=== PATIENT | female | born 1965 | race Caucasian/White ===

== ENCOUNTER 2017-04-07 13:35 | Emergency (ER) ==
[2017-04-07 13:42] VITALS: BP 146/97; TEMP 99.7; BMI 32.8
[2017-04-07] MEDS ORDERED: DECADRON 4 MG/ML SDV IM STA (14:07)
[2017-04-07] MEDS ORDERED: DUONEB NEB STA (14:07)
[2017-04-07 14:20] LABS: BASOPHILS % (AUTO) 0.4 % (0.0-3.0); EOSINOPHILS # (AUTO) 0.1 K/ul (0.0-0.7); EOSINOPHILS % (AUTO) 1.1 % (0.0-7.0); HEMATOCRIT 43.5 % (37.0-47.0); HEMOGLOBIN 15.3 g/dl (12.0-16.0); IMMATURE GRANULOCYTE % (AUTO) 0.3 % (0.0-5.0); LYMPHOCYTES # (AUTO) 2.6 K/uL (0.60-3.4); LYMPHOCYTES % (AUTO) 33.9 (10.0-50.0); MEAN CORPUSCULAR HEMOGLOBIN 31.7 pg (27.0-31.0); MEAN CORPUSCULAR HGB CONC 35.2 (31.8-35.4); MEAN CORPUSCULAR VOLUME 90.1 fl (81.0-99.0); MONOCYTES # (AUTO) 0.3 K/uL (0.4-2.0); MONOCYTES % (AUTO) 4.4 (0-10); NEUTROPHILS # (AUTO) 4.5 K/ul (2.0-6.9); NEUTROPHILS % (AUTO) 59.9; PLATELET COUNT 217 10^3/uL (140-440); RED BLOOD COUNT 4.83 10^6/ul (4.20-5.40); WHITE BLOOD COUNT 7.55 K/ul (4.6-10.2)
[2017-04-07 14:33] LABS: ABG BASE EXCESS 7 (-2.0-2.0); ABG HCO3 30.8 (22.0-26.0); ABG PCO2 40.9 mmHg (35-45); ABG PH 7.484 (7.35-7.45); ABG TCO2 32 (22.0-28.0)
[2017-04-07 14:37] LABS: ALBUMIN 3.7 g/dL (3.4-5.0); ALBUMIN/GLOBULIN RATIO 1.06; ANION GAP 15.4; BILIRUBIN,TOTAL 0.38 mg/dL (0.00-1.20); BUN/CREATININE RATIO 16.66; CALCIUM 9.4 mg/dL (8.2-10.2); CREATININE 0.84 mg/dL (0.60-1.30); POTASSIUM 3.4 mmol/L (3.5-5.10); TOTAL PROTEIN 7.2 g/dL (6.4-8.2)
--- NOTE | 2017-04-07 15:13 | DI ---
EXAM: CHEST FRONTAL AND LATERAL VIEWS HISTORY: Cough. COMPARISON: 10/18/2014 FINDINGS: Heart size and mediastinal contour remain within normal limits. No acute infiltrates. Normal vascularity with no pleural fluid or pneumothorax. The bony thorax has no acute finding. IMPRESSION: No acute process.
--- NOTE | 2017-04-07 15:52 | ED.PDOC ---
General ED Provider: Dr. PATRICIA DUPONT Chief Complaint: Shortness of Air Stated Complaint: short of air Time Seen by Physician: 13:40 Mode of Arrival: Walk-In Information Source: Patient Exam Limitations: No limitations [facility] Nursing and Triage Documentation Reviewed and Agree: Yes Respiratory Complaint Exam - Respiratory Complaint/Exam Symptoms Are: Still present, Resolved Timing: Intermittent Initial Severity: Mild Current Severity: None Location: Chest Character: Reports: Non-productive cough Aggravating: Reports: None Alleviating: Reports: None Associated Signs and Symptoms: Denies: Rapid breathing, Dyspnea, Fever, Chills, Chest pain, Pleuritic chest pain, Wheezing, Hemoptysis, Dizziness, Calf pain, Calf swelling, Edema, URI, Nasal congestion, Hoarseness, Sinus discomfort, Vomiting, Sore throat, Weight loss, Decreased oral intake, Increased thirst, Increased appetite, Increased urination Related History: Reports: Similar episode History of Healthcare-Acquired Pneumonia: No Related Surgical History: Reports: None Pulmonary Embolism Risk Factors: Smoking Cardiac Risk Factors: Reports: Smoking Pseudomonas Risk Factors: Reports: None Tuberculosis Risk Factors: Reports: None Status Asthmaticus Risk Factors: Reports: None Home Oxygen Use: No Recent Stress Test: No Recent Echo/LV Function: No Current Antibiotic Use: No Current Asthma Medication Use: No Respiratory Distress: None Inadequate Respiratory Effort: No Dysphagia Present: No Stridor Present: No JVD Present: No Accessory Muscle Use: No Review of Systems - Review Of Systems Constitutional: Reports: No symptoms Eyes: Reports: No symptoms Ears, Nose, Mouth, Throat: Reports: No symptoms Respiratory: Reports: Cough, Short of air Cardiac: Reports: No symptoms GI: Reports: No symptoms : Reports: No symptoms Musculoskeletal: Reports: No symptoms Skin: Reports: No symptoms Neurological: Reports: No symptoms Endocrine: Reports: No symptoms Hematologic/Lymphatic: Reports: No symptoms All Other Systems: Reviewed and Negative Past Medical History - Past Medical History Previously Healthy: Yes Endocrine: Reports: None Cardiovascular: Reports: Hypertension Respiratory: Reports: COPD, Asthma Hematological: Reports: Other (RHEUMATOID ARTHRITIS) Gastrointestinal: Reports: None Genitourinary: Reports: None Neuro/Psych: Reports: Bipolar Disorder Musculoskeletal: Reports: Arthritis Cancer: Reports: None Last Menstrual Period: menopause - Surgical History General Surgical History: Reports: Tubal ligation - Family History Family History: Reports: Unknown - Social History Smoking Status: Current every day smoker, Light tobacco smoker Hx Substance Use: Yes (MAY SMOKE A LITTLE) Alcohol Screening: None Physical Exam - Physical Exam Appearance: Well-appearing, No pain distress, Well-nourished Eyes: BLAS, EOMI, Conjunctiva clear ENT: Ears normal, Nose normal, Oropharynx normal Respiratory: Airway patent, Breath sounds clear, Breath sounds equal, Respirations nonlabored Cardiovascular: RRR, Pulses normal, No rub, No murmur GI/: Soft, Nontender, No masses, Bowel sounds normal, No Organomegaly Musculoskeletal: Normal strength, ROM intact, No edema, No calf tenderness Skin: Warm, Dry, Normal color Neurological: Sensation intact, Motor intact, Reflexes intact, Cranial nerves intact, Alert, Oriented Psychiatric: Affect appropriate, Mood appropriate Interpretation - Radiology Interpretation Radiology Interpretation By: Radiologist Radiology Results: No acute changes Critical Care Note - Critical Care Note Total Time (mins): 0 Course - Course Hematology/Chemistry: 04/07/17 14:10 04/07/17 14:10 Orders, Labs, Meds: Lab Review 04/07/17 04/07/17 14:10 14:30 WBC 7.55 RBC 4.83 Hgb 15.3 Hct 43.5 MCV 90.1 MCH 31.7 H MCHC 35.2 RDW Coeff of [place] 12.3 Plt Count 217 Immature Gran % (Auto) 0.3 Neut % (Auto) 59.9 Lymph % (Auto) 33.9 [place] % (Auto) 4.4 Eos % (Auto) 1.1 Baso % (Auto) 0.4 Immature Gran # (Auto) 0.0 Neut # 4.5 Lymph # 2.6 [place] # 0.3 L Eos # 0.1 Baso # 0.0 Puncture Site Rradial O2 Saturation 93.0 L ABG pH 7.484 H ABG pCO2 40.9 ABG pO2 63.0 L ABG HCO3 30.8 H ABG Total CO2 32 H ABG Base Excess 7 H David Test + FiO2 % 21.0 Sodium 141 Potassium 3.4 L Chloride 101 Carbon Dioxide 28 Anion Gap 15.4 BUN 14 Creatinine 0.84 Estimated GFR (MDRD) 71.00 BUN/Creatinine Ratio 16.66 Glucose 102 Calcium 9.4 Total Bilirubin 0.38 AST 19 ALT 23 Alkaline Phosphatase 116 H Total Protein 7.2 Albumin 3.7 Globulin 3.5 Albumin/Globulin Ratio 1.06 Orders Category Date Time Status ABG DRAW REQUEST Stat CARDIO 04/07/17 14:07 Completed EKG-(ED ONLY) Stat CARDIO 04/07/17 14:07 Completed NEBULIZER TREATMENT Stat CARDIO 04/07/17 14:08 Completed ABG Stat LAB 04/07/17 14:30 Completed CBC W/ AUTO DIFF Stat LAB 04/07/17 14:10 Completed COMPREHENSIVE METABOLIC PANEL Stat LAB 04/07/17 14:10 Completed Dexamethasone 4 mg/ml Inj [Decadron 4 mg/ml Sdv] MEDS 04/07/17 14:07 Discontinued 4 mg IM ONCE STA Ipratropium/Albuterol Neb [Duoneb] MEDS 04/07/17 14:07 Discontinued 1 vial NEB ONCE STA CHEST, 2 VIEWS PA & LAT Stat RADS 04/07/17 14:06 Completed Medications Discontinued Medications Generic Name Dose Route Start Last Admin Trade Name Freq PRN Reason Stop Dose Admin Albuterol/Ipratropium 1 vial 04/07/17 14:07 04/07/17 14:40 Duoneb NEB 04/07/17 14:08 1 vial ONCE STA Administration Dexamethasone Sodium Phosphate 4 mg 04/07/17 14:07 04/07/17 14:31 Decadron 4 Mg/Ml Sdv IM 04/07/17 14:08 4 mg ONCE STA Administration Vital Signs: Temp Pulse Resp BP Pulse Ox 04/07/17 13:36 99.7 F H 106 H 20 146/97 H 96 Departure - Departure Time of Disposition: 15:51 Disposition: HOME SELF-CARE Discharge Problem: COPD exacerbation Instructions: COPD (Chronic Obstructive Pulmonary Disease) (ED), Chronic Bronchitis (ED), How Your Lungs Work (ED), Nutrition Guidelines for People with COPD (ED) Condition: Good Pt referred to PMD for follow-up: Yes Additional Instructions: Please call your Family Physician as soon as possible to schedule a follow-up appointment. Allergies/Adverse Reactions: Allergies sulfamethoxazole [From Bactrim] Allergy (Severe, Verified 04/07/17 13:44) Hives trimethoprim [From Bactrim] Allergy (Severe, Verified 04/07/17 13:44) Hives amoxicillin [Amoxicillin] Allergy (Intermediate, Verified 04/07/17 13:44) Hives Penicillins Allergy (Intermediate, Verified 04/07/17 13:44) Hives codeine Allergy (Mild, Verified 04/07/17 13:44) Nausea lisinopril Allergy (Verified 04/07/17 13:44) slurred speech, stumbling antibiotics Adverse Reaction (Uncoded 10/18/14 09:59) Home Medications: Ambulatory Orders Albuterol Sulfate [Proair Hfa] 2 puff IH Q4H 04/07/17 Hydrochlorothiazide 25 mg PO DAILY 04/07/17
== END 2017-04-07 16:03 | disposition home or self-care (01) ==
LOC: ED 13:35
DX: J44.1 Chronic obstructive pulmonary disease with (acute) exacerbation (principal); F17.210 Nicotine dependence, cigarettes, uncomplicated
CPT/HCPCS: 36415; 80053; 82803; 85025; 93005; 93010; 94640; 96372; 99283

== ENCOUNTER 2017-11-17 15:20 | Outpatient (CLI) | END 2017-11-17 15:21 | disposition home or self-care (01) | LOC: RHC-LAB 15:20 | PROVIDERS: ATTEND Emergency Medicine | DX: F32.9 Major depressive disorder, single episode, unspecified (principal); I10 Essential (primary) hypertension; R51 Headache; E66.9 Obesity, unspecified | CPT/HCPCS: 36415; 80053; 80061; 82306; 84443; 85025 ==

== ENCOUNTER 2017-11-30 08:55 | Outpatient (CLI) ==
--- NOTE | 2017-11-30 10:11 | DEXA ---
EXAM: DEXA bone mineral density study HISTORY: Vitamin D deficiency DEXA scan lumbar spine performed. Quality of the study is good. Total lumbar BMD is 1.125 grams per square centimeter. T-score -0.5 w and Z-score -0.9. DEXA scan bilateral hips performed. Quality of the study is good. BMD total right 1.039, left 0.966 grams per square centimeter. T-score 0.3, -0.3 and Z-score 0.1, -0.5 . OPINION: BMD - T-score values considered normal by WHO classification. Fracture risk is not increas ed The ten year probablility for major osteoporotic fracture and hip fracture is 6.0% and 0.6% respectiv janki based on WHO fracture risk assessment tool (FRAX).
== END 2017-11-30 08:56 | disposition home or self-care (01) ==
LOC: RAD 08:55
PROVIDERS: ATTEND Emergency Medicine
DX: E87.6 Hypokalemia (principal); I10 Essential (primary) hypertension; E55.9 Vitamin D deficiency, unspecified; N95.9 Unspecified menopausal and perimenopausal disorder
CPT/HCPCS: 36415; 80053

== ENCOUNTER 2017-12-15 10:52 | Outpatient (CLI) ==
--- NOTE | 2017-12-15 11:47 | MAMMO ---
EXAM: Bilateral digital screening mammogram (2-D and 3-D) History: Screening Comparison: Bilateral mammogram 02/01/2014 Findings: MLO and CC views of bilateral breasts demonstrate predominately fatty replaced breast pare nchyma. CAD was reviewed by the radiologist. Tomosynthesis was performed. There are no dominant ma sses, no suspicious microcalcifications and no architectural distortions Impression: Stable negative mammogram. Recommend followup routine screening mammography in 1 year. BIRADS 1
== END 2017-12-15 10:53 | disposition home or self-care (01) ==
LOC: RAD 10:52
PROVIDERS: ATTEND Emergency Medicine
DX: Z12.31 Encounter for screening mammogram for malignant neoplasm of breast (principal)
CPT/HCPCS: 77067

== ENCOUNTER 2018-04-05 12:15 | Outpatient (CLI) | END 2018-04-05 12:16 | disposition home or self-care (01) | LOC: RHC-LAB 12:15 | PROVIDERS: ATTEND Emergency Medicine | DX: F32.9 Major depressive disorder, single episode, unspecified (principal); I10 Essential (primary) hypertension; J44.9 Chronic obstructive pulmonary disease, unspecified; M47.816 Spondylosis without myelopathy or radiculopathy, lumbar region; E66.9 Obesity, unspecified | CPT/HCPCS: 36415; 80053; 80061; 84443; 85025 ==

== ENCOUNTER 2019-01-13 11:30 | Emergency (ER) ==
[2019-01-13 11:34] VITALS: BP 168/97; TEMP 97.5; BMI 35.0
--- NOTE | 2019-01-13 12:02 | ED.PDOC ---
General ED Provider: Dr. JERMAINE CURRY Chief Complaint: Eye Problem Stated Complaint: scratched r eye during sleep ba a cat. 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 Time Seen by Physician: 11:45 Mode of Arrival: Walk-In Information Source: Patient Exam Limitations: No limitations Nursing and Triage Documentation Reviewed and Agree: Yes Does patient meet sepsis criteria?: No System Inflammatory Response Syndrome: Not Applicable Sepsis Protocol: For patient's 13 years and over: Temp is 96.8 and below OR 101 and greater Pulse >90 BPM Resp >20/minute Acutely Altered Mental Status Are patient's symptoms suggestive of a new infection, such as: -Pneumonia -Skin, Soft Tissue -Endocarditis -UTI -Bone, Joint Infection -Implantable Device -Acute Abdominal Infection -Wound Infection -Meningitis -Blood Stream Catheter Infection -Unknown EENT Complaint Exam - Eye Complaint/Exam Onset/Duration: tonight Symptoms Are: Still present Timing: Constant Initial Severity: Mild Current Severity: Mild Location: Right Character: Reports: Foreign body sensation Aggravating: Reports: None Alleviating: Reports: Eye drops Associated Signs and Symptoms: Reports: Clear drainage Eye Surgical History: Reports: None Penetrating Injury Risk Factors: None Globe Rupture Risk Factors: None Acute Glaucoma Risk Factors: None Optic Artery Occlusion Risk Factors: None Visual Acuity Right Eye: 20/20 Visual Acuity Left Eye: 20/15 Visual Field: Normal Extraocular Movement: Normal Orbit Findings: Normal Globe Findings: Intact Lid Findings: Erythema Conjunctival Findings: Exudate Corneal Findings: Clear Fluorescein Uptake: Yes Fundi: Normal Slit Lamp Used: No (not available) Differential Diagnoses: Corneal Abrasion Review of Systems - Review Of Systems Constitutional: Reports: No symptoms Eyes: Reports: Foreign body sensation Ears, Nose, Mouth, Throat: Reports: No symptoms Respiratory: Reports: No symptoms Cardiac: Reports: Lightheadedness GI: Reports: No symptoms : Reports: No symptoms Musculoskeletal: Reports: No symptoms Skin: Reports: No symptoms Neurological: Reports: No symptoms Endocrine: Reports: No symptoms Hematologic/Lymphatic: Reports: No symptoms All Other Systems: Reviewed and Negative Past Medical History - Past Medical History Previously Healthy: Yes Endocrine: Reports: None Cardiovascular: Reports: Hypertension Respiratory: Reports: COPD, Asthma Hematological: Reports: Other (RHEUMATOID ARTHRITIS) Gastrointestinal: Reports: None Genitourinary: Reports: None Neuro/Psych: Reports: Bipolar Disorder Musculoskeletal: Reports: Arthritis Cancer: Reports: None Last Menstrual Period: n/a - Surgical History General Surgical History: Reports: Tubal ligation - Family History Family History: Reports: Unknown - Social History Smoking Status: Current every day smoker, Light tobacco smoker Hx Substance Use: Yes (MAY SMOKE A LITTLE) Alcohol Screening: None Physical Exam - Physical Exam Appearance: Well-appearing Ill-appearing: None Pain Distress: Mild Eyes: Conjunctiva inflammed ENT: Ears normal, Nose normal Neck: Supple Respiratory: Airway patent, Breath sounds clear, Breath sounds equal Cardiovascular: RRR, Pulses normal, No rub GI/: Soft, Nontender, No masses Musculoskeletal: Normal strength, ROM intact, No edema Skin: Warm, Dry Neurological: Sensation intact, Motor intact, Reflexes intact Psychiatric: Affect appropriate Critical Care Note - Critical Care Note Total Time (mins): 0 Course - Course Vital Signs: Temp Pulse Resp BP Pulse Ox 01/13/19 11:32 97.5 F L 92 H 20 168/97 H 96 Departure - Departure Time of Disposition: 13:29 Disposition: HOME SELF-CARE Discharge Problem: Corneal abrasion Instructions: Corneal Abrasion (ED), Corneal Abrasion (DC) Condition: Good Pt referred to PMD for follow-up: Yes (f/u with Dr.Brush CHACKO i=Wednesday and return to ER if worse before) IPMP verified?: Yes Additional Instructions: USE ERYTHROMYCIN EYE OINTMENT 3 TIMES A DAY UNTIL YO SEE DR. METZGER WEDNESDAY Allergies/Adverse Reactions: Allergies sulfamethoxazole [From Bactrim] Allergy (Severe, Verified 01/13/19 11:34) Hives trimethoprim [From Bactrim] Allergy (Severe, Verified 01/13/19 11:34) Hives amoxicillin [Amoxicillin] Allergy (Intermediate, Verified 01/13/19 11:34) Hives Penicillins Allergy (Intermediate, Verified 01/13/19 11:34) Hives codeine Allergy (Mild, Verified 01/13/19 11:34) Nausea lisinopril Allergy (Verified 01/13/19 11:34) slurred speech, stumbling antibiotics Adverse Reaction (Uncoded 01/13/19 11:34) Disposition Discussed With: Patient
[2019-01-13] MEDS ORDERED: [UNRECOGNIZED DRUG - OTHER] OP STA (12:04)
[2019-01-13] MEDS ORDERED: FUL-GLO OP ONE (12:27)
[2019-01-13] MEDS ORDERED: EYE-STREAM OP STA (12:27)
[2019-01-13] MEDS ORDERED: TETRACAINE 0.5% UNIT-DOSE OP ONE (12:27)
[2019-01-13] MEDS ORDERED: EYE-STREAM OP ONE (12:27)
[2019-01-13] MEDS ORDERED: FUL-GLO OP STA (12:27)
[2019-01-13] MEDS ORDERED: TETRACAINE 0.5% UNIT-DOSE OP STA (12:27)
[2019-01-13] MEDS: TETRACAINE 0.5% OPTH SOL OP STA ×2 (12:32→14:39)
[2019-01-13] MEDS ORDERED: ERYTHROMYCIN OP ONE (13:22)
== END 2019-01-13 13:40 | disposition home or self-care (01) ==
LOC: ED 11:30
DX: S05.01XA Injury of conjunctiva and corneal abrasion without foreign body, right eye, initial encounter (principal); W55.03XA Scratched by cat, initial encounter; F17.210 Nicotine dependence, cigarettes, uncomplicated
CPT/HCPCS: 99283

== ENCOUNTER 2019-01-30 11:12 | Outpatient (CLI) | END 2019-01-30 11:13 | disposition home or self-care (01) | LOC: RHC-LAB 11:12 | PROVIDERS: ATTEND Nurse Practitioner Family | DX: Z00.00 Encounter for general adult medical examination without abnormal findings (principal) | CPT/HCPCS: 36415; 80053; 80061; 84443; 85025 ==

== ENCOUNTER 2019-05-24 15:13 | Outpatient (CLI) | END 2019-05-24 15:14 | disposition home or self-care (01) | LOC: LAB 15:13 | PROVIDERS: ATTEND Family Medicine | DX: J02.9 Acute pharyngitis, unspecified (principal) | CPT/HCPCS: 87651 ==